=== PATIENT | male | born 1940 | race Caucasian/White ===

== ENCOUNTER 2018-12-02 12:00 | Emergency (ER) | payer OTHER, MEDICARE ==
--- NOTE | 2018-12-02 12:19 | EDPHY ---
H & P Time Seen by Provider: 12/02/18 12:16 HPI/ROS: Chief complaint. Unable to urinate HPI. Patient is 70-year-old male presents emergency department with inability urinate. He last urinated about 3 hr ago. He feels urge to urinate but cannot urinate other than some dribbling. He has not had similar symptoms previously though does take Flomax. He had prostate surgery 12 years ago and has done well since. No fever, chest pain, shortness of breath. His abdominal pain in the suprapubic area that feels like full bladder. Patient has been using some antihistamines at night to help with sleep ROS 10 systems were reviewed and negative with the exception of the elements mentioned in the history of present illness Past Medical/Surgical History: Prostate surgery Social History: , nonsmoker, no alcohol Smoking Status: Never smoked Physical Exam: General Appearance: Alert well-developed male moderate distress vital signs are stable Eyes: Pupils equal and round no pallor or injection. ENT, Mouth: Mucous membranes are moist. Respiratory: There are no retractions, lungs are clear to auscultation. Cardiovascular: Regular rate and rhythm. Gastrointestinal: Abdomen is soft with tenderness over the suprapubic area. Palpable bladder. Otherwise no masses and normal bowel sounds Neurological: Awake and alert, sensory and motor exams grossly normal. Skin: Warm and dry, no rashes. Musculoskeletal: Neck is supple nontender. Extremities symmetrical, full range of motion. Psychiatric: Patient is oriented X 3, there is no agitation. Constitutional: Initial Vital Signs Temperature (C) 36.3 C 12/02/18 12:09 Heart Rate 81 12/02/18 12:09 Respiratory Rate 18 12/02/18 12:09 Blood Pressure 174/89 H 12/02/18 12:09 O2 Sat (%) 98 12/02/18 12:09 O2 Delivery Mode Room Air Allergies/Adverse Reactions: No Known Allergies Allergy (Verified 12/02/18 12:08) Home Medications: Medication Instructions Recorded Herbals/Supplements -Info Only 1 ea PO DAILY 06/06/14 Multivitamin with Minerals [Men's 1 each PO DAILY 06/06/14 One Daily] Naproxen Sodium [Aleve 220 MG 220 mg PO BID PRN 06/06/14 (OTC)] Flomax 12/02/18 Medical Decision Making Procedures: Bladder scan shows 550 mL of urine . Linder catheter is placed ED Course/Re-evaluation: Re-evaluation 2:00 p.m. Patient is feeling much better. 600 mL of urine out. No longer having any abdominal pain. Patient and I discussed laboratory evaluation, treatment plan including criteria for return importance of follow-up further evaluation. He expresses understanding and agreement Differential Diagnosis: Acute urinary retention. Likely due to BPH. No evidence for urinary tract infection. - Data Points Laboratory Results: 12/02/18 13:22 Urine Color YELLOW Urine Appearance CLEAR Urine pH 7.0 (5.0-7.5) Ur Specific Boley 1.006 (1.002-1.030) Urine Protein NEGATIVE (NEGATIVE) Urine Ketones NEGATIVE (NEGATIVE) Urine Blood 1+ H (NEGATIVE) Urine Nitrate NEGATIVE (NEGATIVE) Urine Bilirubin NEGATIVE (NEGATIVE) Urine Urobilinogen NEGATIVE EU EU (0.2-1.0) Ur Leukocyte Esterase NEGATIVE (NEGATIVE) Urine RBC 15-25 /hpf H /hpf (0-3) Urine WBC 1-3 /hpf /hpf (0-3) Ur Epithelial Cells NONE SEEN /lpf /lpf (NONE-1+) Urine Glucose NEGATIVE (NEGATIVE) Medications Given: Discontinued Medications Lidocaine (Uroject Lidocaine 2% Jelly) 20 ml UR EDNOW ONE Stop: 12/02/18 12:41 Last Admin: 12/02/18 12:42 Dose: 20 ml Departure - Departure Disposition: Home, Routine, Self-Care Clinical Impression: Acute retention of urine Condition: Good Instructions: Urinary Retention in Men (ED) Additional Instructions: Return for pain, fever, catheter not working. Call urologist today to arrange follow-up appointment in the next 2-3 days Caution using antihistamines as they can cause urinary retention Continue Flomax Referrals: NONE *PRIMARY CARE P,. [Primary Care Provider] - As per Instructions Yuliya Kent MD [Medical Doctor] - 2-3 days without fail
[2018-12-02] MEDS ORDERED: LIDOCAINE 2% JELLY 20 ML (UROJECT) UR ONE (12:40)
[2018-12-02 14:56] VITALS: BP 122/70
== END 2018-12-02 14:57 | disposition home or self-care (01) ==
DX: R33.9 Retention of urine, unspecified (principal); Z79.899 Other long term (current) drug therapy; Z98.890 Other specified postprocedural states

== ENCOUNTER 2018-12-23 07:47 | Day surgery (SDC) | payer OTHER, MEDICARE ==
--- NOTE | 2018-12-22 18:25 | GHP ---
[f rep st] PREOP HISTORY AND PHYSICAL ADMISSION DIAGNOSIS: Urinary retention by history. HISTORY OF PRESENT ILLNESS: This is a 78-year-old gentleman who has had brachytherapy in the past for prostate cancer. He has had urinary retention, inability to void and so at the present time, after assessment and evaluation, would recommend he undergo a TURP. His PSA levels recently have been less than 0.064. I have examined him thoroughly and attempted to keep him free from surgery, but at the present time, because of urinary retention, he is admitted for the above procedure of a TURP. PAST MEDICAL HISTORY: Retention of urine, prostate cancer, neuropathy, cholecystitis. PREVIOUS SURGICAL HISTORY: Back surgery, cholecystectomy, knee, radiation seed implant, vasectomy. MEDICATIONS: In the past have been Flomax. ALLERGIES: None. FAMILY HISTORY: Positive for prostate cancer and diabetes. SOCIAL HISTORY: Moderate alcohol consumption. Nonsmoker. REVIEW OF SYSTEMS: Negative for cardiac, respiratory, GI and endocrine. PHYSICAL EXAMINATION: VITAL SIGNS: Stable. CHEST: Clear. HEART: Regular rate and rhythm. ABDOMEN: Normal. No organomegaly, rebound or guarding. EXTREMITIES: Lower extremities are normal. At the present time, he is admitted for the above procedure. He has had a transrectal ultrasound that revealed the brachytherapy stones and his prostate volume was 21.9 mL, and he has had a cystoscopy in the office that reveals prostatic edema and obstruction, and at the present time, he is admitted for TURP. Indication, complications, risks discussed. The risks of bleeding, infection, incontinence, scarring and recurrence of the obstruction have been discussed. Written and verbal consent are obtained and he is admitted for the above procedure. /[id number]/MODL MTDD
[2018-12-23] MEDS ORDERED: ceFAZolin 2 GM/DEXTROSE 100 ML IV ONE ×3 (08:09→09:00)
[2018-12-23] MEDS ORDERED: LR 1,000 ML IV ONE (08:10)
--- NOTE | 2018-12-23 08:36 | PDANEPAE ---
ANE Past Medical History - Cardiovascular History Hx Hypertension: No Hx Arrhythmias: No Hx Chest Pain: No Hx Coronary Artery / Peripheral Vascular Disease: No Hx CHF / Valvular Disease: No Hx Palpitations: No Cardiovascular History Comment: NO CP - Pulmonary History Hx COPD: No Hx Asthma/Reactive Airway Disease: No Hx Recent Upper Respiratory Infection: No Hx Oxygen in Use at Home: Yes O2 in Use at Home (L/minute): 2L AT NOC Hx Sleep Apnea: No Sleep Apnea Screening Result - Last Documented: Negative Pulmonary History Comment: DENIES SOB W STAIRS - Neurologic History Hx Cerebrovascular Accident: No Hx Seizures: No Hx Dementia: No Neurologic History Comment: HX OF RAFA. RIGHT LEG NEUROPATHY AT TIMES CAN BE PAINFUL - Endocrine History Hx Diabetes: No - Renal History Hx Renal Disorders: Yes Renal History Comment: HX OF PROSTATE CA- RADIOACT SEED PLACED 2011. URINARY RETENTION. BPH. NOCTURIA. ED - Liver History Hx Hepatic Disorders: No - Neurological & Psychiatric Hx Hx Neurological and Psychiatric Disorders: No - Cancer History Hx Cancer: Yes Cancer History Comment: PROSTATE CA. SKIN CA - BASAL CELL - Congenital Disorder History Hx Congenital Disorders: No - GI History Hx Gastrointestinal Disorders: No - Other Health History Other Health History: READING GLASSES. BILATERAL HEARING AIDES- DOESN'T WEAR ALL DAY. SLIGHT RASH ON BACK CURRENTLY - Chronic Pain History Chronic Pain: Yes (RIGHT LEG NEUROPATHY) - Surgical History Prior Surgeries: 06/08/14 L4-[address] ANNE. ALVARO. DARA SHOULDER SCOPE. L KNEE SCOPE. RADIOACTIVE SEED IMPLANT. JUAN PABLO. HYDROCELE REP ANE Review of Systems Review of Systems: - Exercise capacity METS (RN): 4 METS ANE Patient History - Allergies Allergies/Adverse Reactions: No Known Allergies Allergy (Verified 12/21/18 11:10) - Home Medications Home Medications: Herbals/Supplements -Info Only 1 ea PO DAILY 06/06/14 [Last Taken 12/21/18] Naproxen Sodium [Aleve 220 MG (OTC)] 220 mg PO BID PRN 06/06/14 [Last Taken ] Aspirin [Aspirin 81mg (*)] 81 mg PO DAILY 12/17/18 [Last Taken 12/21/18] Amber-3 Fatty Acids [Fish Oil 1000 mg (*)] 1,000 mg PO DAILY 12/17/18 [Last Taken 12/21/18] - Smoking Hx Smoking Status: Never smoked - Family Anes Hx Family Hx Anesthesia Complications: NONE ANE Labs/Vital Signs - Vital Signs Height: 167.64 cm Weight: 67.132 kg ANE Physical Exam - Airway Mallampati Score: Class 1 - ASA Status ASA Status: II ANE Anesthesia Plan Anesthesia Plan: GA w LMA
--- NOTE | 2018-12-23 08:36 | PDHPUP ---
History & Physical Update H&P update statement: This history and physical update is based on an assessment of the patient which was completed after admission or registration (within 24 hours), but prior to the surgery/procedure. H&P update: H&P reviewed & patient examined, no change in patient's condition since H&P completed
[2018-12-23] MEDS ORDERED: LIDOCAINE 2% JELLY 20 ML (UROJECT) ONE (08:39)
[2018-12-23] MEDS ORDERED: MIDAZOLAM 2 MG/2 ML VIAL ONE (08:43)
[2018-12-23] MEDS ORDERED: fentaNYL 100 MCG/2 ML INJ ONE (08:43)
[2018-12-23] MEDS ORDERED: PROPOFOL 200 MG/20 ML VIAL ONE (08:44)
[2018-12-23] MEDS ORDERED: ONDANSETRON 4 MG/2 ML VIAL ONE ×2 (08:44)
[2018-12-23] MEDS ORDERED: NAPROXEN SODIUM 220 MG TAB PO PRN ×2 (09:27→10:21)
[2018-12-23] MEDS ORDERED: NALOXONE HCL 0.4 MG/ML INJ IVP PRN (09:56)
[2018-12-23] MEDS ORDERED: PROMETHAZINE HCL 25 MG/ML INJ IVP PRN (09:56)
[2018-12-23] MEDS ORDERED: LR 500 ML IV PRN (09:56)
[2018-12-23] MEDS ORDERED: fentaNYL 100 MCG/2 ML INJ IVP PRN (09:56)
[2018-12-23] MEDS ORDERED: PHENYLEPHRINE HCL 100 MCG/ML SYR IVP PRN (09:56)
[2018-12-23] MEDS ORDERED: oxyCODONE IR 5 MG TAB PO PRN (09:56)
--- NOTE | 2018-12-23 09:57 | POSTANESTH ---
Post Anesthetic Evaluation Cardiovascular Status: Normal, Stable Respiratory Status: Normal, Stable Level of Consciousness/Mental Status: Can Participate in Eval Pain Control: Adequate, Prn Tx Ordered Nausea/Vomiting Control: Adequate, Prn Tx Ordered Complications Possibly Related to Anesthesia: None Noted
--- NOTE | 2018-12-23 10:13 | GOP ---
[f rep st] OPERATIVE REPORT DATE OF OPERATION: 12/23/2018 SURGEON: Joselito Joshi MD ANESTHESIA: General anesthesia. ANESTHESIOLOGIST: Dr. Mckinley provided general anesthesia. PREOPERATIVE DIAGNOSIS: Prostate cancer, post radiation urinary retention. 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 PROCEDURE PERFORMED: Transurethral resection of the prostate. FINDINGS: DESCRIPTION OF PROCEDURE: After being prepped and draped in normal sterile fashion in dorsal lithoto my position and appropriate time-out, the scope was passed into the bladder and he had a relatively d ense stricture at the external sphincter and then had tightness of the prostatic fossa. So at that p oint, the bladder was investigated and he had hypervascularity and +3 trabeculation. With the bipola r loop, I did a channel TUR where we started at the bladder neck, then took down the bladder neck pos terior prostate and during the insertion of the scope and moving back and forth the verumontanum had been superficially avulsed but had a connection, so I gently resected that not to have an effect on t he sphincter. At the end of the procedure, there was one pellet that had been removed and we sent it separate. The bladder was Ellik'd free of all chips and clots. Visualization revealed no residual chips or clots. Ureteral orifices were preserved. External sphincter was symmetric, but he had scar ring of that sphincteric urethra. I refilled his bladder, removed the scope and a coude maneuver, he had good urine flow and at that point, I placed a Urojet, placed an 18 three-way catheter in the waqar dder with a 15 cc balloon inflated, and irrigated clear. We will assess later, but would probably re construction to send him home with a catheter and then have him see us in the office on Thursday for re moval just in light of with his anatomy and the difficulty potentially placing a catheter would be be st served in the office on Thursday. I will talk to his about it and we will make the final decis ion on discharge. Specimen of the prostate tissue the channel tissue was sent for pathologic assessm ent and one pellet removed it was sent for assessment. He tolerated the procedure well and no compli cations encountered. /[id number]/MODL
[2018-12-23 11:00] VITALS: BP 119/69
[2018-12-24] MEDS ORDERED: ASPIRIN 81 MG CHEWABLE TAB PO SCH (09:00)
[2018-12-24] MEDS ORDERED: OMEGA-3 FATTY ACIDS 1,000 MG CAP PO SCH (09:00)
[2018-12-24] MEDS ORDERED: Herbals/Supplements -Info Only PO SCH ×3 (09:00→09:30)
[2018-12-24] MEDS ORDERED: NAPROXEN SODIUM 220 MG TAB PO PRN (09:28)
== END 2018-12-23 11:36 | disposition home or self-care (01) ==
LOC: FSGY 07:47 → UNDOADMOB 07:47 → F1N 07:47 → FSGY 11:36 → UNDODISOB 11:36 → EDSTATUS 15:30
PROVIDERS: ATTEND Specialist
PROC: 0VT08ZZ Resection of Prostate, Via Natural or Artificial Opening Endoscopic (ICD-10-PCS; principal; 2018-12-23 09:00)
DX: N40.1 Benign prostatic hyperplasia with lower urinary tract symptoms (principal); R33.9 Retention of urine, unspecified; N99.89 Other postprocedural complications and disorders of genitourinary system; R35.0 Frequency of micturition; R35.1 Nocturia; N52.9 Male erectile dysfunction, unspecified; Z92.3 Personal history of irradiation; Z80.42 Family history of malignant neoplasm of prostate; Z85.46 Personal history of malignant neoplasm of prostate
CPT/HCPCS: J0690; J2250; J2405; J2704; J3010